=== PATIENT | male | born 1950 | race Caucasian/White ===

== ENCOUNTER 2018-03-03 16:25 | Emergency (ER) | payer MEDICARE, OTHER ==
[2018-03-03] MEDS ORDERED: DIPH/PERTUSS(ACELL)/TETANUS VAC/PF 0.5 ML SYR (>=10YO) IM ONE (17:07)
[2018-03-03] MEDS ORDERED: LIDOCAINE 1% INJ-PF (10 MG/ML) 30 ML SDV INJ ONE (17:20)
--- NOTE | 2018-03-03 17:20 | RADIOLOGY REPORT (SQ) ---
EXAM DESCRIPTION: FINGER RIGHT COMPLETED DATE/TIME: 03/03/2018 5:01 pm REASON FOR STUDY: Injury/Laceration to right 5th digit COMPARISON: None. EXAM PARAMETERS: NUMBER OF VIEWS: Three views. TECHNIQUE: AP, lateral and oblique radiographic images acquired of the right hand. LIMITATIONS: None. FINDINGS: MINERALIZATION: Normal. BONES: No acute fracture or dislocation. No worrisome bone lesions. JOINTS: No effusion. SOFT TISSUES: Mild soft tissue swelling. No radiopaque foreign body. OTHER: No other significant finding. IMPRESSION: NO FRACTURE. TECHNICAL DOCUMENTATION: JOB ID: [id number] [place]-72 2010 [employer]- All Rights Reserved Reading location - IP/workstation name: [employer]
[2018-03-03] MEDS ORDERED: AMOXICILLIN TR/POT CLAVULANATE 500-125 MG TAB PO ONE (17:31)
--- NOTE | 2018-03-03 18:07 | ER Document Report ---
ED General - General Chief Complaint: Fall Injury Stated Complaint: FINGER CUT Time Seen by Provider: 03/03/18 16:51 Notes: Patient is a 68-year-old male that presents to the emergency department for chief complaint of right small finger laceration. Patient states that he was getting down from a ladder, and had accidentally cut the outside of his right little finger. He had some bleeding, which has since decreased significantly. He is not on any blood thinners. Denies any numbness or tingling in his finger. He is right-handed. Does not recall the last time he had a tetanus vaccination. He denies any other injuries, denies head injury. And at this time he rates his pain as a 2 out of 10, sharp sensation in the right pinky finger. Past Medical History: CAD, hypertension, GERD Past Surgical History: Appendectomy Social History: Admits to smoking cigarettes daily, rare alcohol use, denies illicit drug use. Family History: Reviewed and noncontributory for presenting illness Allergies: Reviewed, see documented allergy list. REVIEW OF SYSTEMS: Unless otherwise stated in this report the patient's positive and negative responses for review of systems for constitutional, eyes, ENT, cardiovascular, respiratory, gastrointestinal, neurological, genitourinary, musculoskeletal, and integumentary systems and related systems to the presenting problem are either as stated in the HPI or were not pertinent or were negative for the symptoms and/or complaints related to the presenting medical problem. PHYSICAL EXAMINATION: Vital signs reviewed, nursing noted reviewed. GENERAL: Well-appearing, well-nourished and in no acute distress. HEAD: Atraumatic, normocephalic. EYES: Eyes appear normal, extraocular movements intact, sclera anicteric, conjunctiva are normal. ENT: nares patent, oropharynx clear without exudates. Moist mucous membranes. NECK: Normal range of motion, supple without lymphadenopathy LUNGS: Breath sounds clear to auscultation bilaterally and equal. No wheezes rales or rhonchi. HEART: Regular rate and rhythm without murmurs ABDOMEN: Soft, nontender, normoactive bowel sounds. No rebound, guarding, or rigidity. No masses appreciated. EXTREMITIES: 2-1/2 cm laceration to the lateral aspect of the right small finger , that is serpiginous, and deep to the subcutaneous tissues, tendon function is intact, patient can flex and extend at the DIP and PIP joints, as well as at the MCP of the fifth digit of the right hand. Cap refill is less than 3 seconds distally. The rest of the patient's extremity exam is grossly unremarkable. Range of motion of the upper and lower extremities otherwise. NEUROLOGICAL: No focal neurological deficits. Moves all extremities spontaneously Motor and sensory grossly intact on exam. PSYCH: Normal mood, normal affect. SKIN: Warm, Dry, normal turgor, no rashes or lesions noted on exposed skin TRAVEL OUTSIDE OF THE [place] IN LAST 30 DAYS: No - Related Data Allergies/Adverse Reactions: No Known Allergies Allergy (Verified 03/03/18 16:26) Past Medical History - Social History Smoking Status: Current Some Day Smoker Frequency of alcohol use: Heavy Drug Abuse: None Family History: Reviewed & Not Pertinent Patient has suicidal ideation: No Patient has homicidal ideation: No - Past Medical History Cardiac Medical History: Reports: Hx Coronary Artery Disease - ON MEDS, Hx Hypercholesterolemia Denies: Hx Heart Attack, Hx Hypertension Pulmonary Medical History: Denies: Hx Asthma, Hx Bronchitis, Hx COPD, Hx Pneumonia Neurological Medical History: Denies: Hx Cerebrovascular Accident, Hx Seizures Renal/ Medical History: Denies: Hx Peritoneal Dialysis Musculoskeletal Medical History: Denies Hx Arthritis Past Surgical History: Reports: Hx Appendectomy, Hx Orthopedic Surgery - Right Ankle - Immunizations Hx Diphtheria, Pertussis, Tetanus Vaccination: Yes Physical Exam - Vital signs Vitals: Temp Pulse Resp BP Pulse Ox 98.0 F 57 L 14 118/74 96 03/03/18 16:29 03/03/18 16:29 03/03/18 16:29 03/03/18 16:29 03/03/18 16:29 Course - Re-evaluation Re-evalutation: Patient's wound was irrigated and cleaned extensively, prior to repair, x-rays were obtained and negative for fracture, patient's wound was repaired with good approximation, tolerated well as noted, patient was given a dose of Augmentin, will be discharged on 7 days of Augmentin, advised to follow-up in 7 days for wound check or earlier if he notice signs of infection, patient agreeable to plan of care and discharge to home. - Vital Signs Vital signs: Temp Pulse Resp BP Pulse Ox 98.1 F 62 16 139/80 H 96 03/03/18 19:20 03/03/18 19:20 03/03/18 19:20 03/03/18 19:20 03/03/18 19:20 Procedures - Laceration/Wound Repair Right Finger 5th digit Wound length (cm): 2.5 Wound's Depth, Shape: Irregular Laceration pre-procedure: Sterile PPE donned, Sterile drapes applied, Shur- Clens applied Anesthetic type: 1% Lidocaine Volume Anesthetic (mLs): 3 Wound explored: Contaminated Irrigated w/ Saline (mLs): 250 Wound Debrided: Minimal Wound Repaired With: Sutures Suture Size/Type: 4:0, Ethilon Number of Sutures: 20 Layer Closure?: No Post-procedure wound care: Sterile dressing applied Post-procedure NV exam normal: Yes Complications: No Notes: Patient tolerated the procedure well. Digital block was applied in addition to some local anesthetic. Discharge - Discharge Clinical Impression: Laceration of right little finger Qualifiers: Encounter type: initial encounter Damage to nail status: without damage Foreign body presence: without foreign body Qualified Code(s): S61.216A - Laceration without foreign body of right little finger without damage to nail, initial encounter Fall Qualifiers: Encounter type: initial encounter Qualified Code(s): W19.XXXA - Unspecified fall, initial encounter Condition: Stable Disposition: HOME, SELF-CARE Instructions: Hand Laceration ([facility]), Laceration Care ([facility]) Additional Instructions: Please return to the emergency department or to your primary care physician's office to have your sutures evaluated in 7 days., Take the antibiotics as prescribed, keep the wound clean and dry. Do not scrub over the sutures. Prescriptions: Amox Tr/Potassium Clavulanate [Augmentin 875-125 Tablet] 1 tab PO BID 7 Days # 14 tablet Referrals: HATTIE PAULINO MD [Primary Care Provider] - Follow up in 1 week
[2018-03-03 19:21] VITALS: BP 139/80
== END 2018-03-03 19:25 | disposition home or self-care (01) ==
LOC: ER 16:25
DX: S61.216A Laceration without foreign body of right little finger without damage to nail, initial encounter (principal); W11.XXXA Fall on and from ladder, initial encounter; I25.10 Atherosclerotic heart disease of native coronary artery without angina pectoris; F17.210 Nicotine dependence, cigarettes, uncomplicated
CPT/HCPCS: 99283; 90471; 73140; 90715; 12001; A9270; J3490

== ENCOUNTER 2018-03-11 14:07 | Emergency (ER) | payer MEDICARE ==
[2018-03-11 14:17] VITALS: BP 128/59
--- NOTE | 2018-03-11 15:37 | ER Document Report ---
HPI - HPI Patient complains to provider of: Suture removal Onset: Last week Pain Level: Denies Context: She is here for suture removal to a laceration to the right fifth finger. Patient states he has been compliant with taking antibiotics. Patient reports that his tetanus immunization is currently up-to-date. Patient does state that he has 2 areas on the lateral sides of the laceration that a pad daily drainage. Patient has been taking his antibiotic and denies any change in the type of drainage that has been coming from the laceration. Associated Symptoms: Other - Sutured laceration to the right hand Relieved by: Denies Similar symptoms previously: No Recently seen / treated by doctor: No - ROS ROS below otherwise negative: Yes Systems Reviewed and Negative: Yes All other systems reviewed and negative - CONSTITUTIONAL Constitutional: DENIES: Fever - NEURO Neurology: DENIES: Weakness - DERM Skin Color: Normal Skin Problems: Laceration Past Medical History - General Information source: Patient - Social History Smoking Status: Current Every Day Smoker Frequency of alcohol use: None Drug Abuse: None Family History: Reviewed & Not Pertinent - Past Medical History Cardiac Medical History: Reports: Hx Coronary Artery Disease - ON MEDS, Hx Hypercholesterolemia Denies: Hx Heart Attack, Hx Hypertension Pulmonary Medical History: Denies: Hx Asthma, Hx Bronchitis, Hx COPD, Hx Pneumonia Neurological Medical History: Denies: Hx Cerebrovascular Accident, Hx Seizures Renal/ Medical History: Denies: Hx Peritoneal Dialysis Musculoskeletal Medical History: Denies Hx Arthritis Past Surgical History: Reports: Hx Appendectomy, Hx Orthopedic Surgery - Right Ankle - Immunizations Hx Diphtheria, Pertussis, Tetanus Vaccination: Yes Vertical Provider Document - CONSTITUTIONAL Agree With Documented VS: Yes Exam Limitations: No Limitations General Appearance: WD/WN, No Apparent Distress - INFECTION CONTROL TRAVEL OUTSIDE OF THE [place] IN LAST 30 DAYS: No - HEENT HEENT: Atraumatic, Normocephalic - NECK Neck: Normal Inspection - RESPIRATORY Respiratory: No Respiratory Distress - CARDIOVASCULAR Pulses: Normal: Radial - MUSCULOSKELETAL/EXTREMETIES Musculoskeletal/Extremeties: MAEW. negative: Tender - NEURO Level of Consciousness: Awake, Alert, Appropriate Motor/Sensory: No Motor Deficit - DERM Integumentary: Warm, Dry, Laceration - Irregular laceration to right fifth finger with 20 intact sutures. Patient with area to radial aspect of finger with a small amount of drainage. Course - Re-evaluation Re-evalutation: 03/11/18 15:32 Patient has been on a 7-day course of Augmentin, will give patient an additional 3 days of antibiotics with good return precautions. Patient encouraged to follow-up with hand surgeon for any worsening of symptoms. No surrounding erythema. Patient states that wound has been draining since the first day sutures were placed, will culture this and continue antibiotics for a full 10 days - Vital Signs Vital signs: Temp Pulse Resp BP Pulse Ox 98.5 F 83 16 128/59 H 98 03/11/18 14:16 03/11/18 14:16 03/11/18 14:16 03/11/18 14:16 03/11/18 14:16 Discharge - Discharge Clinical Impression: Encounter for removal of sutures Condition: Stable Disposition: HOME, SELF-CARE Instructions: Antibiotic Therapy ([facility]), Care of Steri-Strip Closure ([facility]), Suture Removal Additional Instructions: Return immediately for any new or worsening symptoms Followup with your primary care provider, call tomorrow to make a followup appointment Wound culture is pending, we will call if you need any different treatment Follow-up with a hand surgeon for any persistent problems Prescriptions: Amox Tr/Potassium Clavulanate [Augmentin 875-125 Tablet] 1 tab PO BID 3 Days tablet Forms: Smoking Cessation Education Referrals: HATTIE PAULINO MD [Primary Care Provider] - Follow up as needed MARISABEL RAMIREZ DO [ACTIVE STAFF] - Follow up as needed
== END 2018-03-11 16:14 | disposition home or self-care (01) ==
LOC: ER 14:07
DX: S61.216D Laceration without foreign body of right little finger without damage to nail, subsequent encounter (principal); X58.XXXD Exposure to other specified factors, subsequent encounter; F17.200 Nicotine dependence, unspecified, uncomplicated
CPT/HCPCS: 87070; 87075; 87077; 87186; 87205; 99282

== ENCOUNTER 2018-03-24 07:21 | Emergency (ER) | payer MEDICARE, OTHER ==
[2018-03-24 07:31] VITALS: BP 119/65
--- NOTE | 2018-03-24 07:47 | ER Document Report ---
HPI - HPI Pain Level: Denies Notes: Patient is a 68-year-old male who presents to the ED and request of a medication change of his antibiotic. Patient states that he was placed on this antibiotic 2 days ago for his right fifth digit status post suture placement and suture removal over the last couple months. Patient states that he has not had any worsening redness, purulence, or red streaks to his finger. Patient states he has no pain associated to his finger. He is otherwise eating and drinking without any difficulties, but does have a decreased p.o. intake due to intolerance of the medicine. Patient states that the medicine is making him feel flushed as well as nauseated intermittently. No other concerns or complaints. Denies any headache, fever, URI, sore throat, chest pain, palpitations, syncope, cough, shortness of breath, wheeze, dyspnea, abdominal pain, nausea/vomiting/diarrhea, urinary retention, dysuria, hematuria, numbness/ tingling, muscle paralysis/weakness, or rash. - ROS Systems Reviewed and Negative: Yes All other systems reviewed and negative - CONSTITUTIONAL Constitutional: REPORTS: Chills Past Medical History - Social History Smoking Status: Current Every Day Smoker Chew tobacco use (# tins/day): No Frequency of alcohol use: None Drug Abuse: None Family History: Reviewed & Not Pertinent Patient has suicidal ideation: No Patient has homicidal ideation: No - Past Medical History Cardiac Medical History: Reports: Hx Coronary Artery Disease - ON MEDS, Hx Hypercholesterolemia Denies: Hx Heart Attack, Hx Hypertension Pulmonary Medical History: Denies: Hx Asthma, Hx Bronchitis, Hx COPD, Hx Pneumonia Neurological Medical History: Denies: Hx Cerebrovascular Accident, Hx Seizures Renal/ Medical History: Denies: Hx Peritoneal Dialysis Musculoskeletal Medical History: Denies Hx Arthritis Past Surgical History: Reports: Hx Appendectomy, Hx Orthopedic Surgery - Right Ankle - Immunizations Hx Diphtheria, Pertussis, Tetanus Vaccination: Yes Vertical Provider Document - CONSTITUTIONAL Agree With Documented VS: Yes Notes: PHYSICAL EXAMINATION: GENERAL: Well-appearing, well-nourished and in no acute distress. LUNGS: Breath sounds clear to auscultation bilaterally and equal. No wheezes rales or rhonchi. HEART: Regular rate and rhythm without murmurs, rubs, gallops. Musculoskeletal: Rt 5th digit: FROM to passive/active. Strength 5+/5. N/V intact distal. No erythema, warmth, purulence, abscess, or induration noted. Extremities: No cyanosis, clubbing, or edema b/l. Peripheral pulses 2+. Capillary refill less than 3 seconds. NEUROLOGICAL: Normal speech, normal gait. Normal sensory, motor exams PSYCH: Normal mood, normal affect. SKIN: see above. - INFECTION CONTROL TRAVEL OUTSIDE OF THE [place] IN LAST 30 DAYS: No Course - Re-evaluation Re-evalutation: 03/24/18 07:49 Vitals are acceptable. PE is otherwise unremarkable. No labs or imaging warranted. Patient's medication will be switched to doxycycline based on culture and sensitivity results. Sunlight precautions reviewed. Patient may stop his Bactrim. Recheck with your PCM in 3-5 days. Return to the ED with any worsening/concerning symptoms otherwise as reviewed discharge. Patient is in agreement. - Vital Signs Vital signs: Temp Pulse Resp BP Pulse Ox 99.2 F 57 L 16 119/65 97 03/24/18 07:29 03/24/18 07:29 03/24/18 07:29 03/24/18 07:29 03/24/18 07:29 Discharge - Discharge Clinical Impression: Medication therapy changed Condition: Stable Disposition: HOME, SELF-CARE Additional Instructions: Keep the skin clean Wash with soap and water Tylenol/ibuprofen if needed Triple antibiotic ointment daily if warranted Take medication as directed Monitor for any worsening symptoms Recheck with your PCM in 3-5 days Return to the ED with any worsening symptoms and/or development of fever, headache, chest pain, palpitations, syncope, shortness of breath, trouble breathing, abdominal pain, n/v/d, abscess, purulent discharge, red streaks, worsening swelling, or other worsening symptoms that are concerning to you. Prescriptions: Doxycycline Hyclate 100 mg PO BID #20 capsule Referrals: HATTIE PAULINO MD [Primary Care Provider] - Follow up in 3-5 days
== END 2018-03-24 07:55 | disposition home or self-care (01) ==
LOC: ER 07:21
DX: Z76.0 Encounter for issue of repeat prescription (principal)
CPT/HCPCS: 99283